=== PATIENT | male | born 1965 | race Caucasian/White ===

== ENCOUNTER 2017-04-27 09:01 | Inpatient (IN) ==
[2017-04-27] MEDS ORDERED: NITROGLYCERIN 2% OINT 1 INCH/GM PACK TOP STA (09:30)
[2017-04-27] MEDS ORDERED: METOPROLOL TARTRATE 25 MG TABLET PO STA (09:30)
[2017-04-27] MEDS ORDERED: ASPIRIN 325 MG TABLET PO STA (09:30)
[2017-04-27] MEDS ORDERED: MORPHINE 2 MG/1 ML SYRINGE IV STA (09:41)
[2017-04-27] MEDS ORDERED: ONDANSETRON 4 MG/2 ML VIAL IV STA (09:41)
[2017-04-27] MEDS ORDERED: ALUM/MAG/SIMETH/LIDO VISC 1:1 30 ML BOTTLE PO STA (09:41)
[2017-04-27 09:54] LABS: Basophils # 0.1 10*3/uL (0.0-0.2); Basophils % 0.6 % (0.0-0.8); Eosinophils # 0.1 10*3/uL (0.0-0.87); Eosinophils % 1.4 % (0.00-10.9); Hematocrit 46.9 VOL% (42.0-52.0); Hemoglobin 16.9 GM/DL (14.0-18.0); Immature Granulocytes % 0.3 %; Immature Granulocytes Absolute 0.03 #; Lymphocytes # 1.9 10*3/uL (1.4-4.0); Lymphocytes % 21.1 % (21.2-54.2); Mean Corpuscular Hemoglobin 29 PG (27-34); Monocytes # 0.6 10*3/uL (0.11-0.8); Monocytes % 6.8 % (1.7-12.7); Neutrophils # 6.2 10*3/uL (1.4-7.4); Neutrophils % 69.8 % (38.7-73.9); Platelet Count 264 T/CUMM (130-400); Red Blood Count 5.86 MC/CUMM (3.8-5.5); Red Cell Distribution Width 12.9 % (9.3-17.3); White Blood Count 8.9 T/CUMM (4-12)
--- NOTE | 2017-04-27 10:01 | XRay Report ---
XR chest 1V portable Indication: Chest pain Comparison: None Technique: Single frontal view of the chest. Findings: Heart size appears upper limits of normal. Mild left basilar atelectasis. Small left pleural fluid not excluded. Visualized osseous and surrounding soft tissue structures demonstrate no acute abnormality. IMPRESSION: As above. PROCEDURE INTERPRETED AT [facility] DEPARTMENT OF RADIOLOGY Final Report Signed by: Dr Josr Mcconnell
[2017-04-27] MEDS ORDERED: ONDANSETRON 4 MG/2 ML VIAL ONE (10:10)
[2017-04-27] MEDS ORDERED: METOPROLOL TARTRATE 25 MG TABLET ONE (10:10)
[2017-04-27] MEDS ORDERED: NITROGLYCERIN 2% OINT 1 INCH/GM PACK TOP ONE (10:10)
[2017-04-27] MEDS ORDERED: ASPIRIN 325 MG TABLET ONE (10:11)
[2017-04-27] MEDS ORDERED: ALUM/MAG/SIMETH/LIDO VISC 1:1 30 ML BOTTLE PO ONE (10:11)
[2017-04-27] MEDS ORDERED: MORPHINE 2 MG/1 ML SYRINGE ONE (10:11)
--- NOTE | 2017-04-27 10:11 | Emergency Department Note ---
Clara Leigh Gwan, am scribing for, and in the presence of, Niraj Snyder MD 10 :05. Lillian Leigh Charles R, MD, personally performed the services described in this documentation, ascribed by Adriana Elizabeth in my presence, and it is both accurate and complete . Arrival - Arrival Chief Complaint: Chest Pain Stated Complaint: cp ED Nursing Triage Note: pt reports that he had sudden onset of pain in center of chest this morning while getting dressed. reports got sob. no diaphoresis. took two ntg without any relief. pt holding his chest at present. had stents two months ago Mode of Arrival: Wheelchair Limitations: No Limitations Source: Patient, Old Records Reviewed, RN Notes Reviewed Time Seen by Provider: 04/27/17 09:30 - History of Present Illness HPI Narrative: Patient is a 51 y/o white male who presents to the ED with a c/o chest pain with an onset 1 hour REGULATOR TESTER. Pt has a PMHx of CAD, stents, HTN, IDDM and COPD. Patient stated that he has a sudden onset of chest pain while getting dressed. he continued to note that the pain was similar to the pain of his previous heart attack and that it radiated down his left arm. His associated sxs have been SOB and nausea and he stated that his pain worsens with movement. This prompted his visit to the ED for further evaluation. Patient confirmed that he took 2 NTG with little relief but he denies being diaphoretic. Patient is being followed by Dr. Fischer. No other problems/complaints reported in ED. Onset (ago): hour(s) Consistency: constant Severity: moderate Allergies/Adverse Reactions: Allergies Allergy/AdvReac Type Severity Reaction Status Date / Time No Known Allergies Allergy Verified 02/10/17 06:09 Home Medications: Home Medications Medication Instructions Recorded Confirmed Type Aspirin [Ecotrin] 81 mg PO DAILY 02/09/17 04/27/17 History Clopidogrel [Plavix] 75 mg PO DAILY 02/09/17 04/27/17 History Insulin Aspart [NovoLOG] See Protocol SUBCUT DAILY 02/09/17 04/27/17 History Insulin Detemir [Levemir] 38 units SUBCUT BEDTIME 02/09/17 04/27/17 History Lisinopril/Hydrochlorothiazide 1 each PO DAILY 02/09/17 04/27/17 History [Lisinopril-Hctz 20-12.5 mg Tab] Metformin HCl 1,000 mg PO BID 02/09/17 04/27/17 History Metoprolol Succinate 25 mg PO DAILY 02/09/17 04/27/17 History Nitroglycerin [Nitroglycerin SL 0.4 mg SL Q5M PRN 02/09/17 04/27/17 History Tab] Omeprazole 20 mg PO DAILY 02/09/17 04/27/17 History Albuterol Sulfate [Ventolin HFA] 2 puffs PO BID PRN 02/10/17 04/27/17 History Review of System - Review of System 12 point system: reviewed and no additional remarkable complaints except as stated - Review of System Constitutional: Absent: chills, fever Eyes: Absent: discharge Head/Ears/Nose/Throat: Absent: earache Respiratory: Present: as per HPI, other (shortness of breathe ). Absent: cough Cardiovascular: Present: as per HPI, chest pain Gastrointestinal: Present: as per HPI, nausea. Absent: abdominal pain, vomiting , diarrhea Genitourinary male: Absent: urgency, dysuria, frequency Musculoskeletal: Present: as per HPI, arm pain (chest pain radiates down left arm ). Absent: lower back pain, leg pain, neck pain Skin: Absent: rash, lesions Neurological: Absent: headache, weakness Psychiatric: Absent: anxiety Medical,Surgical,& Family Hx - Medical History Cardio: History of: CAD, Hypertension Neurology: No history of: Seizures Endocrine: History of: Diabetes Mellitus (IDDM) Musculoskeletal: History of: Back/Neck Problems - Surgical History Cardiac Surgeries: Sugical HX of: Cardiac Catheterization Thoracic Surgeries: Patient denies;: Lobectomy Neurologic Surgeries: Patient denies: Neurologic Surgery - Family History Family History: Reports;: Family Cancer, Family Diabetes, Family Heart Disease, Family Hypertension - Social History Smoking Status: Former smoker Exam Vital Signs: Vital Signs Temperature 98.2 F 04/27/17 09:07 Pulse Rate 86 04/27/17 09:35 Respiratory Rate 20 04/27/17 09:35 Blood Pressure 145/92 04/27/17 09:35 O2 Sat by Pulse Oximetry 97 04/27/17 09:35 - General General appearance: alert, in no apparent distress - Head Head exam: Present: atraumatic, normocephalic - Eye Eye exam: Present: normal appearance, PERRL, EOMI - ENT ENT exam: Present: normal oropharynx, mucous membranes moist, TM's normal bilaterally, normal external ear exam - Neck Neck exam: Present: full ROM, trachea midline. Absent: tenderness - Chest Chest inspection: Present: symmetric chest wall rise. Absent: tenderness - Respiratory Respiratory exam: Present: normal lung sounds bilaterally. Absent: respiratory distress - Cardiovascular Cardiovascular exam: Present: regular rate, normal rhythm, normal heart sounds. Absent: murmur - Abdominal Exam Abdominal exam: Present: soft, normal bowel sounds. Absent: distention, tenderness - Extremities Exam Extremities exam: Present: full ROM. Absent: tenderness - Back Exam Back exam: Present: full ROM. Absent: tenderness - Neurological Exam Neurological exam: Present: alert, oriented X3, CN II-XII intact. Absent: motor sensory deficit - Psychiatric Psychiatric exam: Present: normal affect, normal mood - Skin Skin exam: Present: warm, dry, intact, normal color - Other Other exam information: Patient is asymptomatic while in ED to include a NML EKG but, due to his hx and his sxs patient will undergo further evaluation. Course - Consultations Consultation #1: Dr. Burdick will admit patient Time: 10:53 Results - Labs CBC & BMP: 04/27/17 09:39 04/27/17 09:39 Lab Results: I have reviewed the patients labs Labs: Laboratory Tests 04/27/17 04/27/17 04/27/17 09:39 09:39 09:39 WBC 8.9 RBC 5.86 H Hgb 16.9 Hct 46.9 MCV 80.0 L Plt Count 264 Lymph % (Auto) 21.1 L Sodium 136 Potassium 3.5 Chloride 100 Carbon Dioxide 23 Anion Gap 16.5 H BUN 15 Creatinine 0.90 Glucose 302 H Troponin I < 0.015 Lipase 240.0 - Diagnostic Findings Procedure: Chest x-ray: report reviewed by me (Heart size appears upper limits of normal. Mild left basilar atelectasis. Small left pleural fluid not excluded. Visulaized osseous and surrounding soft tissue structures demonstrate no acute abnormality. ) Disposition Clinical Impression: Chest pain, CAD (coronary artery disease), Hypertension, Insulin dependent diabetes mellitus, s/p RCA stent 02/10/17 Case discussed with: patient Disposition: Still a Patient Condition: Stable Time of Disposition: 10:54
[2017-04-27 10:14] LABS: Bilirubin,Total 0.6 MG/DL (0.2-1.0); Calcium 9.2 MG/DL (8.5-10.1); Magnesium 1.8 MG/DL (1.8-2.4); Potassium 3.5 MMOL/L (3.5-5.1)
[2017-04-27] MEDS ORDERED: ENOXAPARIN 100 MG/ML SYRINGE SUBCUT STA (10:52)
[2017-04-27] MEDS ORDERED: ENOXAPARIN 120 MG/0.8 ML SYRINGE SUBCUT ONE (11:23)
[2017-04-27] MEDS ORDERED: MAGNESIUM SULF RIDER 2 GM in PREMIX 1 EACH IV PRN (11:53)
[2017-04-27] MEDS ORDERED: DEXTROSE 50% 25 GM/50 ML VIAL IV PRN (11:53)
[2017-04-27] MEDS ORDERED: MAGNESIUM SULF RIDER 4 GM in PREMIX 1 EACH IV PRN (11:53)
[2017-04-27] MEDS ORDERED: ALBUTEROL 2.5 MG/3 ML NEB RESP TX PRN (11:53)
[2017-04-27] MEDS ORDERED: NITROGLYCERIN SL 0.4 MG TABLET SL PRN (11:53)
[2017-04-27] MEDS ORDERED: GLUCAGON 1 MG VIAL IM PRN (11:53)
[2017-04-27 11:59] LABS: D-Dimer <= 0.5 MG/L FEU; PT Patient Result 10.5 SECS
[2017-04-27] MEDS: INSULIN LISPRO 100 UNIT/ML SUBCUT SCH ×3 (12:41→21:00)
[2017-04-27] MEDS: NITROGLYCERIN 2% OINT 1 INCH/GM PACK TOP SCH ×2 (12:42→17:05)
--- NOTE | 2017-04-27 13:01 | EKG Report ---
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
[2017-04-27] MEDS: SODIUM CHLORIDE 0.9% 1,000 ML IV SCH (14:50)
--- NOTE | 2017-04-27 14:59 | EKG Report ---
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
--- NOTE | 2017-04-27 15:02 | Ultrasound Report ---
History is right upper abdominal pain The liver is 17.6 cm in length. Echotexture is within normal limits There is a small amount of gallbladder sludge without shadowing stones No biliary ductal dilatation seen however the common bile duct was very poorly visualized. Echogenicity in the general region of the distal common duct on some images is uncertain whether this was adjacent to or within the common duct secondary to limited visualization. No right renal hydronephrosis seen There is prominent heterogeneity in the visualized pancreas. Portions of the head and tail are obscured Proximal visualized aorta and IVC are normal in size Impression: 1. Prominent heterogeneity of the pancreas raising question of pancreatitis 2. Poorly visualized distal common bile duct with echogenicity in the region of the distal duct which could be adjacent tissues or sludge within the duct. No shadowing stones seen. CT should be considered. PROCEDURE INTERPRETED AT [facility] DEPARTMENT OF RADIOLOGY Final Report Signed by: Dr. Adeline Mariscal
[2017-04-27] MEDS: MORPHINE 2 MG/1 ML SYRINGE IV PRN (15:03)
[2017-04-27] MEDS: POTASSIUM CHLORIDE 20 MEQ TABLET PO PRN ×2 (15:04→17:08)
[2017-04-27] MEDS: ONDANSETRON 4 MG/2 ML VIAL IV PRN (15:04)
--- NOTE | 2017-04-27 16:44 | Cardiology History & Physical ---
Assessment and Plan - Time spent with patient Time spent with patient: Greater than 30 minutes (1) Abdominal pain Status: Acute Assessment and plan: SEE PLAN OF CARE LISTED BELOW Current Visit: Yes (2) CAD (coronary artery disease) Status: Chronic Assessment and plan: SEE PLAN OF CARE LISTED BELOW Current Visit: Yes (3) Hypertension Status: Chronic Assessment and plan: SEE PLAN OF CARE LISTED BELOW Current Visit: Yes (4) Insulin dependent diabetes mellitus Status: Chronic Assessment and plan: SEE PLAN OF CARE LISTED BELOW Current Visit: Yes (5) Obesity Status: Chronic Assessment and plan: SEE PLAN OF CARE LISTED BELOW Current Visit: No (6) Tobacco abuse, in remission Status: Resolved Assessment and plan: SEE PLAN OF CARE LISTED BELOW Current Visit: No (7) Hypercholesterolemia Status: Chronic Assessment and plan: SEE PLAN OF CARE LISTED BELOW Current Visit: No (8) Obstructive sleep apnea Status: Chronic Assessment and plan: SEE PLAN OF CARE LISTED BELOW Current Visit: No (9) s/p RCA stent 02/10/17 Status: Chronic Assessment and plan: SEE PLAN OF CARE LISTED BELOW Current Visit: No (10) Family history of early CAD Status: Chronic Assessment and plan: SEE PLAN OF CARE LISTED BELOW Current Visit: No (11) Status post diagonal stent 02/24/17 Status: Chronic Assessment and plan: SEE PLAN OF CARE LISTED BELOW Current Visit: No (12) Chest pain Status: Acute Assessment and plan: SEE PLAN OF CARE LISTED BELOW Current Visit: Yes History of Present Illness Chief complaint: Chest pain History 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 (This is a late entry). Mr. Hooper, 51WM, routinely followed by Dr. Fischer. Last seen in cardiology clinic March 10, 2017. Risk factors include: Known coronary artery disease (S/ P diagonal stent February 24, 2017 and proximal RCA stent February 10, 2017), hypertension, dyslipidemia, diabetes, obesity, remote tobaccoism, family history of premature coronary artery disease. History of known obstructive sleep apnea, compliant with device. This morning, around 0830, patient got out of bed, began getting dressed when he experienced a sudden onset of chest pain located in the left chest area, radiating to left shoulder and between his shoulder blades. Patient describes as "sharp and stabbing." Taking a deep breath seemed to worsen the chest discomfort. He rates the discomfort as 7 on a scale of 1-10. He is currently chest pain free. This lasted approximately 30 minutes to 1 hour. He felt as if he may be having "heart problems" therefore warranting emergency department evaluation. When he received IV medication, chest discomfort was alleviated. He feels as if he has been doing well since his most recent stent in February 2017 , performing all of his activities without chest pain, heaviness or tightness. He reports compliance with aspirin and Plavix. Cardiac biomarkers are negative, EKG does not reveal an acute event. Denies swelling of his lower extremities or history of DVT or PE. D-dimer has been ordered. His chest discomfort is not reproducible with movement. In the right upper quadrant of the abdomen and mid epigastric area, he is exquisitely tender to touch. He has had no nausea or vomiting. He believes he may have had pancreatitis some years ago that he never sought medical advice. Lipase is within normal limits. Continue to cycle cardiac biomarkers at this time as well as close monitoring of his EKG. No need to repeat echocardiogram as we have a recent echo from prior hospitalization. Await results of d-dimer. If elevated, will perform CTA chest, PE protocol. Also, will treat for musculoskeletal pain and with PPI. Will discuss with Dr. Burdick and await additional recommendations. ASSESSMENT/PLAN: 1. CHEST PAIN - see plan of care listed above. 2. KNOWN CAD - S/P PCI Dx February 2017 and proximal RCA February 10, 2017. Continuing to monitor cardiac biomarkers, EKG 3. HYPERTENSION - adequately controlled on beta meir, SHANDA inhibitor 4. DYSLIPIDEMIA - I do not see a lipid lowering agent on patient's medication list. I will start Crestor 10 mg each evening. FLP in a.m. 5. DIABETES - suboptimally controlled blood glucose on arrival. Adjust medications accordingly during hospital stay. 6. PASHA - compliant with sleep device. Okay to use home device while hospitalized 7. OBESITY - dietary counseling prior to discharge 8. ABDOMINAL PAIN - gallbladder ultrasound (patient is n.p.o.), lipase and amylase. PPI. Home Medications Medication Instructions Recorded Confirmed Type Aspirin [Ecotrin] 81 mg PO DAILY 02/09/17 04/27/17 History Clopidogrel [Plavix] 75 mg PO DAILY 02/09/17 04/27/17 History Insulin Aspart [NovoLOG] See Protocol SUBCUT DAILY 02/09/17 04/27/17 History Insulin Detemir [Levemir] 38 units SUBCUT BEDTIME 02/09/17 04/27/17 History Lisinopril/Hydrochlorothiazide 1 each PO DAILY 02/09/17 04/27/17 History [Lisinopril-Hctz 20-12.5 mg Tab] Metformin HCl 1,000 mg PO BID 02/09/17 04/27/17 History Metoprolol Succinate 25 mg PO DAILY 02/09/17 04/27/17 History Nitroglycerin [Nitroglycerin SL 0.4 mg SL Q5M PRN 02/09/17 04/27/17 History Tab] Omeprazole 20 mg PO DAILY 02/09/17 04/27/17 History Albuterol Sulfate [Ventolin HFA] 2 puffs PO BID PRN 02/10/17 04/27/17 History Allergies Allergy/AdvReac Type Severity Reaction Status Date / Time No Known Allergies Allergy Verified 02/10/17 06:09 Review of systems: REVIEW OF SYSTEMS: See HPI - Constitutional Constitutional: Absent: syncope, anorexia, night sweats, fatigue - EENT Eyes: Absent: blurry vision, loss of vision, diplopia Ears: Absent: decreased hearing, ear pain, ear discharge - Cardiovascular Cardiovascular: Present: chest pain with movement and deep breath. Denies dyspnea on exertion, edema, palpitations. Absent: claudication, - Respiratory Respiratory: Denies ROBBINS, cough. Absent: wheezing, hemoptysis, change in phlegm color - Gastrointestinal Gastrointestinal: Denies constipation. Epigastric tenderness, exquisite to light palpation. Right upper quadrant abdominal pain reproducible to palpation though not the same as the chest discomfort he has been describing. Constipation. Absent: hematemesis, hematochezia, melena, change in bowel habits, nausea - Genitourinary Genitourinary: Absent: difficulty urinating, dysuria, urinary hesitancy, flank pain - Musculoskeletal Musculoskeletal: Present: back pain Absent: joint swelling, muscle cramps, muscle weakness - Neurological Neurological: Present: normal gait without frequent falls. Absent: dizziness, hemiparesis - Psychiatric Psychiatric: Absent: anxiety, depression, difficulty concentrating - Endocrine Endocrine: Denies fatigue. Absent: cold intolerance, heat intolerance, polyuria , polyphagia, polydipsia - Hematologic/Lymphatic Hematologic/Lymphatic: Present: easy bruising. Absent: easy bleedin -Integumentary Integumentary: Absent: lesions, rashes, skin breakdown Medical,Surgical,& Family Hx - Medical History Cardio: History of: CAD, Hypertension Neurology: No history of: Seizures Endocrine: History of: Diabetes Mellitus (IDDM) Musculoskeletal: History of: Back/Neck Problems - Surgical History Cardiac Surgeries: Sugical HX of: Cardiac Catheterization Thoracic Surgeries: Patient denies;: Lobectomy Neurologic Surgeries: Patient denies: Neurologic Surgery - Family History Family History: Reports;: Family Cancer, Family Diabetes, Family Heart Disease, Family Hypertension - Social History Smoking Status: Former smoker Frequency of Alcohol Use: None Type of Drug Use: None Cardiology Physical Exam - Constitutional Vitals: Vital Signs Temp Pulse Resp BP Pulse Ox 96.2 F L 73 20 137/79 96 04/27/17 12:23 04/27/17 12:23 04/27/17 12:23 04/27/17 12:23 04/27/17 12:23 Intake and Output 04/27/17 04/27/17 04/27/17 07:59 15:59 23:59 Other: Weight 101.406 kg Patient Weight 04/27/17 23:59 Weight 101.406 kg Exam: General: [Appears well with no apparent distress.] [Pleasant and cooperative. ] [Appears comfortable.] HEENT: [PERRL, normocephalic, atraumatic. Mucous membranes moist. No jaundice noted. Conjunctiva moist and clear, sclerae anicteric] Neck: No JVD/HJR, no thyromegaly or lymphadenopathy noted. No carotid bruit appreciated Cardiac: [Regular rate and rhythm.] [No murmur rub or gallop.] Lungs: [Clear to auscultation without accessory muscle use to assist the respiratory pattern.] Not requiring oxygen. Abdomen: Soft, bowel sounds normoactive. Epigastric tenderness to palpation, exquisite. Right upper quadrant abdominal discomfort to palpation. No abdominal bruit or thrill noted. No masses noted. Musculoskeletal: No fluid collection. Decreased range of motion is noted. Extremities: No clubbing, cyanosis noted. [ No edema noted.] Upper extremity pulses 2+. Lower extremity pulses 2+. Capillary refill less than 3 seconds. Skin: No unusual lesions or rashes. No skin breakdown appreciated. Neuro: Awake, alert and oriented 3. Moves all extremities well without hemiparesis or paralysis. No essential tremor is appreciated. Result/EKG - Labs CBC & BMP: 04/27/17 09:39 04/27/17 09:39 Lab Results: I have reviewed the past 24 hour labs Labs: Laboratory Results - last 24 hr 04/27/17 04/27/17 04/27/17 09:39 09:39 09:39 WBC RBC Hgb Hct MCV MCH MCHC RDW Plt Count MPV Neut % (Auto) Lymph % (Auto) Gila % (Auto) Eos % (Auto) Baso % (Auto) Neut # (Auto) Lymph # (Auto) Gila # (Auto) Eos # (Auto) Baso # (Auto) Immature Gran % Nucleated RBC % Immature Gran # Nucleated RBCs # INR 1.0 PT Patient/Control Mix 10.5 D-Dimer, Quantitative <= 0.5 Sodium 136 Potassium 3.5 Chloride 100 Carbon Dioxide 23 Anion Gap 16.5 H BUN 15 Creatinine 0.90 GFR Calculation 131 BUN/Creatinine Ratio 16.00 Glucose 302 H POC Glucose Calculated Osmolality 283.0 Calcium 9.2 Magnesium 1.8 Total Bilirubin 0.60 AST 21 ALT 50 Alkaline Phosphatase 70 Troponin I < 0.015 B-Natriuretic Peptide Total Protein 7.0 Albumin 4.0 Globulin 3.0 Albumin/Globulin Ratio 1.3 Lipase 240.0 04/27/17 04/27/17 04/27/17 09:39 09:39 12:15 WBC 8.9 RBC 5.86 H Hgb 16.9 Hct 46.9 MCV 80.0 L MCH 29 MCHC 36.0 RDW 12.9 Plt Count 264 MPV 10.0 Neut % (Auto) 69.8 Lymph % (Auto) 21.1 L Gila % (Auto) 6.8 Eos % (Auto) 1.4 Baso % (Auto) 0.6 Neut # (Auto) 6.2 Lymph # (Auto) 1.9 Gila # (Auto) 0.6 Eos # (Auto) 0.1 Baso # (Auto) 0.1 Immature Gran % 0.3 Nucleated RBC % 0.0 Immature Gran # 0.03 Nucleated RBCs # 0.00 INR PT Patient/Control Mix D-Dimer, Quantitative Sodium Potassium Chloride Carbon Dioxide Anion Gap BUN Creatinine GFR Calculation BUN/Creatinine Ratio Glucose POC Glucose 267 H Calculated Osmolality Calcium Magnesium Total Bilirubin AST ALT Alkaline Phosphatase Troponin I B-Natriuretic Peptide 9 Total Protein Albumin Globulin Albumin/Globulin Ratio Lipase 04/27/17 04/27/17 12:25 15:13 WBC RBC Hgb Hct MCV MCH MCHC RDW Plt Count MPV Neut % (Auto) Lymph % (Auto) Gila % (Auto) Eos % (Auto) Baso % (Auto) Neut # (Auto) Lymph # (Auto) Gila # (Auto) Eos # (Auto) Baso # (Auto) Immature Gran % Nucleated RBC % Immature Gran # Nucleated RBCs # INR PT Patient/Control Mix D-Dimer, Quantitative Sodium Potassium Chloride Carbon Dioxide Anion Gap BUN Creatinine GFR Calculation BUN/Creatinine Ratio Glucose POC Glucose Calculated Osmolality Calcium Magnesium Total Bilirubin AST ALT Alkaline Phosphatase Troponin I < 0.015 0.022 B-Natriuretic Peptide Total Protein Albumin Globulin Albumin/Globulin Ratio Lipase - Diagnostic Findings Procedure: Chest x-ray: report reviewed by me - EKG EKG results: interpreted by me EKG shows: sinus rhythm
[2017-04-27] MEDS: GABAPENTIN 100 MG CAPSULE PO SCH ×2 (17:03→20:59)
[2017-04-27] MEDS: traMADol 50 MG TABLET PO SCH ×2 (17:03→20:58)
[2017-04-27] MEDS: ACETAMINOPHEN 325 MG TABLET PO SCH ×2 (17:03→20:59)
[2017-04-27] MEDS: ROSUVASTATIN 20 MG TABLET PO SCH (20:59)
[2017-04-27] MEDS: metFORMIN 500 MG TABLET PO SCH (20:59)
[2017-04-27] MEDS: INSULIN GLARGINE 100 UNIT/ML SUBCUT SCH (21:00)
[2017-04-28] MEDS: NITROGLYCERIN 2% OINT 1 INCH/GM PACK TOP SCH ×4 (00:17→17:50)
[2017-04-28] MEDS: SODIUM CHLORIDE 0.9% 1,000 ML IV SCH ×4 (04:41→20:27)
[2017-04-28 05:24] LABS: Basophils % 0.6 % (0.0-0.8); Eosinophils # 0.3 10*3/uL (0.0-0.87); Hematocrit 46.5 VOL% (42.0-52.0); Hemoglobin 16.1 GM/DL (14.0-18.0); Immature Granulocytes % 0.4 %; Immature Granulocytes Absolute 0.03 #; Lymphocytes % 30.4 % (21.2-54.2); Mean Corpuscular HGB Conc 34.6 GM/DL (32-36); Mean Corpuscular Hemoglobin 28 PG (27-34); Monocytes # 0.5 10*3/uL (0.11-0.8); Monocytes % 7.3 % (1.7-12.7); Neutrophils # 3.9 10*3/uL (1.4-7.4); Neutrophils % 57.3 % (38.7-73.9); Platelet Count 261 T/CUMM (130-400); Red Blood Count 5.67 MC/CUMM (3.8-5.5); Red Cell Distribution Width 13.3 % (9.3-17.3); White Blood Count 6.7 T/CUMM (4-12)
[2017-04-28 05:58] LABS: Calcium 9.2 MG/DL (8.5-10.1); Magnesium 2.2 MG/DL (1.8-2.4); Osmolality,Calculated 285.4 MOS/KG (273-304); Potassium 4.6 MMOL/L (3.5-5.1)
[2017-04-28 06:02] LABS: Troponin I Only 0.256 NG/ML (0.00-0.045)
[2017-04-28 06:04] LABS: Albumin 3.7 G/DL (3.4-5.0); Bilirubin,Total 0.6 MG/DL (0.2-1.0); Calcium 9.3 MG/DL (8.5-10.1); Magnesium 2.2 MG/DL (1.8-2.4); Osmolality,Calculated 285.4 MOS/KG (273-304); Potassium 4.4 MMOL/L (3.5-5.1); Risk Ratio 5.33; Total Protein 6.4 G/DL (6.4-8.3)
--- NOTE | 2017-04-28 07:34 | EKG Report ---
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
--- NOTE | 2017-04-28 07:40 | XRay Report ---
Referring Physician: Niraj Snyder Exam: XR chest 1V portable Date: April 28, 2017 at 6:22 AM Reason: Shortness of breath Comparison: Chest one view portable April 27, 2017 Findings: The cardiac silhouette is upper normal in size. No focal consolidation, pneumothorax or pleural effusion is identified. No acute osseous process is seen. Impression: No acute cardiopulmonary process is identified. PROCEDURE INTERPRETED AT [facility] DEPARTMENT OF RADIOLOGY Final Report Signed by: Dr. Marixa Rome
[2017-04-28] MEDS: INSULIN LISPRO 100 UNIT/ML SUBCUT SCH ×4 (08:08→20:36)
[2017-04-28] MEDS ORDERED: LISINOPRIL/HCTZ 20-12.5 MG TABLET PO SCH (09:00)
[2017-04-28] MEDS ORDERED: ASPIRIN EC 81 MG TABLET PO SCH (09:00)
[2017-04-28] MEDS ORDERED: ASPIRIN EC 325 MG TABLET PO SCH (09:00)
[2017-04-28] MEDS ORDERED: PANTOPRAZOLE 40 MG TABLET PO SCH (09:00)
[2017-04-28] MEDS: METOPROLOL SUCCINATE XL 25 MG TABLET PO SCH (09:04)
[2017-04-28] MEDS: CLOPIDOGREL 75 MG TABLET PO SCH (09:04)
[2017-04-28] MEDS: GABAPENTIN 100 MG CAPSULE PO SCH ×3 (09:04→20:38)
[2017-04-28] MEDS: metFORMIN 500 MG TABLET PO SCH ×2 (09:04→20:37)
[2017-04-28] MEDS: PANTOPRAZOLE 40 MG TABLET PO SCH (09:04)
[2017-04-28] MEDS: ACETAMINOPHEN 325 MG TABLET PO SCH ×2 (09:04→20:38)
[2017-04-28] MEDS: traMADol 50 MG TABLET PO SCH ×2 (09:05→20:37)
--- NOTE | 2017-04-28 09:45 | Cardiology Progress Note ---
Assessment and Plan - Time spent with patient Time spent with patient: Greater than 30 minutes (1) Abdominal pain Status: Acute Assessment and plan: SEE PLAN OF CARE LISTED BELOW Current Visit: Yes (2) CAD (coronary artery disease) Status: Chronic Assessment and plan: SEE PLAN OF CARE LISTED BELOW Current Visit: Yes (3) Hypertension Status: Chronic Assessment and plan: SEE PLAN OF CARE LISTED BELOW Current Visit: Yes (4) Insulin dependent diabetes mellitus Status: Chronic Assessment and plan: SEE PLAN OF CARE LISTED BELOW Current Visit: Yes (5) Obesity Status: Chronic Assessment and plan: SEE PLAN OF CARE LISTED BELOW Current Visit: No (6) Tobacco abuse, in remission Status: Resolved Assessment and plan: SEE PLAN OF CARE LISTED BELOW Current Visit: No (7) Hypercholesterolemia Status: Chronic Assessment and plan: SEE PLAN OF CARE LISTED BELOW Current Visit: No (8) Obstructive sleep apnea Status: Chronic Assessment and plan: SEE PLAN OF CARE LISTED BELOW Current Visit: No (9) s/p RCA stent 02/10/17 Status: Chronic Assessment and plan: SEE PLAN OF CARE LISTED BELOW Current Visit: No (10) Family history of early CAD Status: Chronic Assessment and plan: SEE PLAN OF CARE LISTED BELOW Current Visit: No (11) Status post diagonal stent 02/24/17 Status: Chronic Assessment and plan: SEE PLAN OF CARE LISTED BELOW Current Visit: No (12) Chest pain Status: Acute Assessment and plan: SEE PLAN OF CARE LISTED BELOW Current Visit: Yes Cardiology - PN: Subj Interval history: Gela to complete Gallbladder ultrasound abnormal. Discussed with Dr. Burdick. Will order CT abdomen with IV contrast not oral contrast. Also, patient continues to have back pain between his shoulder blades. We will see if we can do CT chest with contrast at this time, the abdominal CT. He is n.p.o. 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 Hooper, 51WM, routinely followed by Dr. Fischer. Last seen in cardiology clinic March 10, 2017. Risk factors include: Known coronary artery disease (S/P diagonal stent February 24, 2017 and proximal RCA stent February 10, 2017) , hypertension, dyslipidemia, diabetes, obesity, remote tobaccoism, family history of premature coronary artery disease. History of known obstructive sleep apnea, compliant with device. Presented to the emergency department April 27, 2016 with sudden onset left-sided chest pain, left shoulder pain and pain between his scapula. He has been housed on our telemetry unit overnight. Troponin noted to be 0.256 with normal CPK and MB. EKG stable. This morning, left-sided chest pain and shoulder pain has resolved however he continues to have pain between his scapula at various times. Gallbladder ultrasound revealed possible pancreatitis. Lipase and amylase are within normal limits however. D-dimer normal. He is NPO for abdominal CT with IV contrast and CT chest this morning. I have discussed with Dr. Burdick and he has recommended GI consultation. Hima elevated at 300, LDL 99. ASSESSMENT/PLAN: 1. CHEST PAIN - see plan of care listed above. 2. KNOWN CAD - S/P PCI Dx February 2017 and proximal RCA February 10, 2017. Continuing to monitor cardiac biomarkers, EKG 3. HYPERTENSION -increasing SHANDA inhibitor or for better blood pressure control. Continue beta blockade. 4. DYSLIPIDEMIA - suboptimally controlled. Will add [place]-3 to treat triglycerides. Crestor was initiated yesterday. 5. DIABETES - suboptimally controlled blood glucose on arrival. Better controlled this morning. 6. PASHA - compliant with sleep device. Okay to use home device while hospitalized 7. OBESITY - dietary counseling prior to discharge 8. ABDOMINAL PAIN -awaiting CT abdomen, GI consultation. Continue PPI. Exam (Progress Note) - Constitutional Vitals: Period Temp Pulse Resp BP Sys/Smith Pulse Ox Last 24 Hr 96.2 F-97.5 F 55-85 16-20 122-167/64-91 92-98 Exam: General: [Appears well with no apparent distress.] [Pleasant and cooperative. ] [Appears comfortable.] HEENT: [PERRL, normocephalic, atraumatic. Mucous membranes moist. No jaundice noted. Conjunctiva moist and clear, sclerae anicteric] Neck: Unable to assess for JVD due to habitus. No thyromegaly or lymphadenopathy noted. Cardiac: [Regular rate and rhythm.] [No murmur rub or gallop.] Lungs: [Clear to auscultation without accessory muscle use to assist the respiratory pattern.] Not requiring oxygen Abdomen: Soft, bowel sounds normoactive. Nondistended. No abdominal bruit or thrill noted. No masses noted. Musculoskeletal: No fluid collection. Decreased range of motion is noted. Extremities: No clubbing, cyanosis noted. [ No edema noted.] Upper extremity pulses 2+. Lower extremity pulses 2+. Capillary refill less than 3 seconds. Skin: No unusual lesions or rashes. No skin breakdown appreciated. Neuro: Awake, alert and oriented 3. Moves all extremities well without hemiparesis or paralysis. No essential tremor is appreciated. Result/EKG - Labs CBC & BMP: 04/28/17 04:45 04/28/17 04:45 Lab Results: I have reviewed the past 24 hour labs Labs: Laboratory Results - last 24 hr 04/27/17 04/27/17 04/27/17 09:39 09:39 09:39 WBC RBC Hgb Hct MCV MCH MCHC RDW Plt Count MPV Neut % (Auto) Lymph % (Auto) [place] % (Auto) Eos % (Auto) Baso % (Auto) Neut # (Auto) Lymph # (Auto) [place] # (Auto) Eos # (Auto) Baso # (Auto) Immature Gran % Nucleated RBC % Immature Gran # Nucleated RBCs # INR 1.0 PT Patient/Control Mix 10.5 D-Dimer, Quantitative <= 0.5 Sodium 136 Potassium 3.5 Chloride 100 Carbon Dioxide 23 Anion Gap 16.5 H BUN 15 Creatinine 0.90 GFR Calculation 131 BUN/Creatinine Ratio 16.00 Glucose 302 H POC Glucose Calculated Osmolality 283.0 Calcium 9.2 Magnesium 1.8 Total Bilirubin 0.60 AST 21 ALT 50 Alkaline Phosphatase 70 Total Creatine Kinase CK-MB (CK-2) Troponin I < 0.015 B-Natriuretic Peptide Total Protein 7.0 Albumin 4.0 Globulin 3.0 Albumin/Globulin Ratio 1.3 Triglycerides Cholesterol LDL Cholesterol VLDL Cholesterol HDL Cholesterol Heart Disease Risk Ratio Amylase Lipase 240.0 04/27/17 04/27/17 04/27/17 09:39 09:39 12:15 WBC 8.9 RBC 5.86 H Hgb 16.9 Hct 46.9 MCV 80.0 L MCH 29 MCHC 36.0 RDW 12.9 Plt Count 264 MPV 10.0 Neut % (Auto) 69.8 Lymph % (Auto) 21.1 L [place] % (Auto) 6.8 Eos % (Auto) 1.4 Baso % (Auto) 0.6 Neut # (Auto) 6.2 Lymph # (Auto) 1.9 [place] # (Auto) 0.6 Eos # (Auto) 0.1 Baso # (Auto) 0.1 Immature Gran % 0.3 Nucleated RBC % 0.0 Immature Gran # 0.03 Nucleated RBCs # 0.00 INR PT Patient/Control Mix D-Dimer, Quantitative Sodium Potassium Chloride Carbon Dioxide Anion Gap BUN Creatinine GFR Calculation BUN/Creatinine Ratio Glucose POC Glucose 267 H Calculated Osmolality Calcium Magnesium Total Bilirubin AST ALT Alkaline Phosphatase Total Creatine Kinase CK-MB (CK-2) Troponin I B-Natriuretic Peptide 9 Total Protein Albumin Globulin Albumin/Globulin Ratio Triglycerides Cholesterol LDL Cholesterol VLDL Cholesterol HDL Cholesterol Heart Disease Risk Ratio Amylase Lipase 04/27/17 04/27/17 04/27/17 12:25 15:13 15:46 WBC RBC Hgb Hct MCV MCH MCHC RDW Plt Count MPV Neut % (Auto) Lymph % (Auto) [place] % (Auto) Eos % (Auto) Baso % (Auto) Neut # (Auto) Lymph # (Auto) [place] # (Auto) Eos # (Auto) Baso # (Auto) Immature Gran % Nucleated RBC % Immature Gran # Nucleated RBCs # INR PT Patient/Control Mix D-Dimer, Quantitative Sodium Potassium Chloride Carbon Dioxide Anion Gap BUN Creatinine GFR Calculation BUN/Creatinine Ratio Glucose POC Glucose 253 H Calculated Osmolality Calcium Magnesium Total Bilirubin AST ALT Alkaline Phosphatase Total Creatine Kinase CK-MB (CK-2) Troponin I < 0.015 0.022 B-Natriuretic Peptide Total Protein Albumin Globulin Albumin/Globulin Ratio Triglycerides Cholesterol LDL Cholesterol VLDL Cholesterol HDL Cholesterol Heart Disease Risk Ratio Amylase Lipase 04/27/17 04/28/17 04/28/17 19:29 00:15 04:45 WBC 6.7 RBC 5.67 H Hgb 16.1 Hct 46.5 MCV 82.0 L MCH 28 MCHC 34.6 RDW 13.3 Plt Count 261 MPV 10.0 Neut % (Auto) 57.3 Lymph % (Auto) 30.4 [place] % (Auto) 7.3 Eos % (Auto) 4.0 Baso % (Auto) 0.6 Neut # (Auto) 3.9 Lymph # (Auto) 2.0 [place] # (Auto) 0.5 Eos # (Auto) 0.3 Baso # (Auto) 0.0 Immature Gran % 0.4 Nucleated RBC % 0.0 Immature Gran # 0.03 Nucleated RBCs # 0.00 INR PT Patient/Control Mix D-Dimer, Quantitative Sodium Potassium Chloride Carbon Dioxide Anion Gap BUN Creatinine GFR Calculation BUN/Creatinine Ratio Glucose POC Glucose 304 H 175 H Calculated Osmolality Calcium Magnesium Total Bilirubin AST ALT Alkaline Phosphatase Total Creatine Kinase CK-MB (CK-2) Troponin I B-Natriuretic Peptide Total Protein Albumin Globulin Albumin/Globulin Ratio Triglycerides Cholesterol LDL Cholesterol VLDL Cholesterol HDL Cholesterol Heart Disease Risk Ratio Amylase Lipase 04/28/17 04/28/17 04/28/17 04:45 04:45 04:45 WBC RBC Hgb Hct MCV MCH MCHC RDW Plt Count MPV Neut % (Auto) Lymph % (Auto) [place] % (Auto) Eos % (Auto) Baso % (Auto) Neut # (Auto) Lymph # (Auto) [place] # (Auto) Eos # (Auto) Baso # (Auto) Immature Gran % Nucleated RBC % Immature Gran # Nucleated RBCs # INR PT Patient/Control Mix D-Dimer, Quantitative Sodium 140 Potassium 4.4 Chloride 102 Carbon Dioxide 29 Anion Gap 13.4 BUN 18 Creatinine 0.90 GFR Calculation 126 BUN/Creatinine Ratio 20.00 Glucose 180 H POC Glucose Calculated Osmolality 285.4 Calcium 9.3 Magnesium 2.2 Total Bilirubin 0.60 AST 20 ALT 50 Alkaline Phosphatase 65 Total Creatine Kinase 65 CK-MB (CK-2) 2.0 Troponin I 0.256 H D B-Natriuretic Peptide 8 Total Protein 6.4 Albumin 3.7 Globulin 2.7 Albumin/Globulin Ratio 1.3 Triglycerides 300 H Cholesterol 160 LDL Cholesterol 99.0 VLDL Cholesterol 60.0 HDL Cholesterol 30 L Heart Disease Risk Ratio 5.33 Amylase Lipase 04/28/17 04/28/17 04/28/17 04:45 04:45 07:54 WBC RBC Hgb Hct MCV MCH MCHC RDW Plt Count MPV Neut % (Auto) Lymph % (Auto) [place] % (Auto) Eos % (Auto) Baso % (Auto) Neut # (Auto) Lymph # (Auto) [place] # (Auto) Eos # (Auto) Baso # (Auto) Immature Gran % Nucleated RBC % Immature Gran # Nucleated RBCs # INR PT Patient/Control Mix D-Dimer, Quantitative Sodium 140 Potassium 4.6 Chloride 102 Carbon Dioxide 29 Anion Gap 13.6 BUN 17 Creatinine 0.90 GFR Calculation 126 BUN/Creatinine Ratio 18.00 Glucose 180 H POC Glucose 149 H Calculated Osmolality 285.4 Calcium 9.2 Magnesium 2.2 Total Bilirubin AST ALT Alkaline Phosphatase Total Creatine Kinase CK-MB (CK-2) Troponin I B-Natriuretic Peptide Total Protein Albumin Globulin Albumin/Globulin Ratio Triglycerides Cholesterol LDL Cholesterol VLDL Cholesterol HDL Cholesterol Heart Disease Risk Ratio Amylase 85 Lipase - Diagnostic Findings Procedure: Chest x-ray: report reviewed by me, Ultrasound: report reviewed by me - EKG EKG results: interpreted by me EKG shows: sinus rhythm
--- NOTE | 2017-04-28 09:59 | Gastrointestinal Consult Note ---
Assessment and Plan (1) Abdominal pain Status: Acute Assessment and plan: 04/28-sudden onset epigastric pain radiating up into chest down arm into the back , associated with nausea. Cardiac history with recent stent placement. Gallbladder ultrasound showing prominent heterogeneity of pancreas, poorly visualized common bile duct and distal duct region with questionable sludge/ adjacent tissue. CT of abdomen pending. Lipase 240. LFTs unremarkable. Cardiac workup is ongoing. Plan an addendum to follow Dr. Colleen gregory Current Visit: Yes History of Present Illness Chief complaint: Abdominal pain History of present illness: Mr. Hooper is a 51 year old male who was admitted to the hospital with sudden onset of chest pain and abdominal pain. Pt states that yesterday morning he was up doing chores around his home and sat down to put on his shoes when he had a sudden onset of sharp stabbing chest pain that radiated up into his chest and down his left arm as well as into his back. He also had onset of nausea associated with this. He states that he at that time decided to come to the ER due to history of ND in the past. Pt states this felt similar to his chest pain he had at that time. He has a history of ND and stent placement in 2014 and then again in January and February of this yaer. He has been on Plavix since 2013. He states that he has no prior GI history in the past. He has never had endoscopy in the past as well. He has history of GERD and takes OTC Prilosec for this. Denies any other GI symptoms including dysphagia, dyspepsia, melena or hematochezia. He denies any NSAID use. Denies any recent weight loss. He states he has a strong family history for gallbladder disease in his mother and two sisters. He denies alcohol use and has a history of tobacco use however he has been quit for years. He recalls a vague history of pancreatitis in the past but cannot recall details of this. He is tenderness to epigastric region with light palpation. Gallbladder ultrasound noted to show prominent heterogenity of the pancreas, poorly visualized distal CBD in region of distal duct with possible sludge. CT of abdomen and chest are pending this morning. LFTs are unremarkable. Lipase is 240. Home Medications Medication Instructions Recorded Confirmed Type Aspirin [Ecotrin] 81 mg PO DAILY 02/09/17 04/27/17 History Clopidogrel [Plavix] 75 mg PO DAILY 02/09/17 04/27/17 History Insulin Aspart [NovoLOG] See Protocol SUBCUT DAILY 02/09/17 04/27/17 History Insulin Detemir [Levemir] 38 units SUBCUT BEDTIME 02/09/17 04/27/17 History Lisinopril/Hydrochlorothiazide 1 each PO DAILY 02/09/17 04/27/17 History [Lisinopril-Hctz 20-12.5 mg Tab] Metformin HCl 1,000 mg PO BID 02/09/17 04/27/17 History Metoprolol Succinate 25 mg PO DAILY 02/09/17 04/27/17 History Nitroglycerin [Nitroglycerin SL 0.4 mg SL Q5M PRN 02/09/17 04/27/17 History Tab] Omeprazole 20 mg PO DAILY 02/09/17 04/27/17 History Albuterol Sulfate [Ventolin HFA] 2 puffs PO BID PRN 02/10/17 04/27/17 History Allergies Allergy/AdvReac Type Severity Reaction Status Date / Time No Known Allergies Allergy Verified 02/10/17 06:09 Medical,Surgical,& Family Hx - Medical History Cardio: History of: CAD, Hypertension Neurology: No history of: Seizures Endocrine: History of: Diabetes Mellitus (IDDM) Musculoskeletal: History of: Back/Neck Problems - Surgical History Cardiac Surgeries: Sugical HX of: Cardiac Catheterization Thoracic Surgeries: Patient denies;: Lobectomy Neurologic Surgeries: Patient denies: Neurologic Surgery - Family History Family History: Reports;: Family Cancer, Family Diabetes, Family Heart Disease, Family Hypertension - Social History Smoking Status: Former smoker Frequency of Alcohol Use: None Type of Drug Use: None 12 point system: reviewed and no additional remarkable complaints except as stated - Constitutional Constitutional: Present: as per HPI - EENT Eyes: Present: as per HPI Ears: Present: as per HPI Nose, mouth and throat: Present: as per HPI - Cardiovascular Cardiovascular: Present: as per HPI, chest pain at rest, radiating jaw, neck or arm pain - Respiratory Respiratory: Present: as per HPI - Gastrointestinal Gastrointestinal: Present: as per HPI, abdominal pain, heartburn, nausea - Genitourinary Genitourinary: Present: as per HPI - Musculoskeletal Musculoskeletal: Present: as per HPI - Neurological Neurological: Present: as per HPI - Psychiatric Psychiatric: Present: as per HPI - Endocrine Endocrine: Present: as per HPI - Hematologic/Lymphatic Hematologic/Lymphatic: Present: as per HPI Exam - Constitutional Vitals: Period Temp Pulse Resp BP Sys/Smith Pulse Ox Last 24 Hr 96.2 F-97.5 F 55-85 16-20 122-167/64-91 92-98 General appearance: no acute distress, over weight - Head Head exam: Present: normal inspection, normocephalic - Eye Eye exam: Present: other (lids and conjunctiva unremarakble). Absent: scleral icterus - ENT ENT exam: Present: normal exam, normal oropharynx - Neck Neck exam: Present: normal inspection - Respiratory Respiratory exam: Present: clear to auscultation bilaterally. Absent: rales, rhonchi, wheezes - Cardiovascular Cardiovascular exam: Present: regular rate and rhythm. Absent: diastolic murmur , JVD, systolic murmur - GI/Abdominal GI/Abdominal exam: Present: normal bowel sounds, soft. Absent: ascites, distended, mass, organomegaly, tenderness - Extremities Exam Extremities exam: Present: normal inspection, full ROM - Back Exam Back exam: Present: normal inspection - Neurological Exam Neurological exam: Present: alert, oriented X3 - Psychiatric Psychiatric exam: Present: normal affect, normal mood - Skin Skin exam: Present: normal color, warm, dry Results - Labs CBC & BMP: 04/28/17 04:45 04/28/17 04:45 Lab Results: I have reviewed the past 24 hour labs - Diagnostic Findings Procedure: Ultrasound: report reviewed by me
--- NOTE | 2017-04-28 11:15 | CT Report ---
CT chest abdomen wo/w con Indication: Noncardiac chest/abdominal pain/abnormal ultrasound Comparison: Gallbladder ultrasound April 27, 2017 Technique: Multiple axial tomographic images of the chest and abdomen were obtained before and after the administration of 100 cc Omnipaque 350 intravenous contrast. Findings: Aberrant right subclavian artery courses behind the esophagus. Heart size appears within normal limits. Coronary artery calcification noted. No significantly enlarged intrathoracic lymph node by CT size criteria. Occasional noncalcified bilateral noncalcified pulmonary nodules noted measuring 4 mm or less. Granulomatous calcification noted within the left lung apex. Mild groundglass attenuation demonstrated within the anteroinferior left lower lobe. Mild dependent change of the lungs present. No worrisome focal hepatic abnormality. The gallbladder is grossly unremarkable. The pancreas is grossly unremarkable. The spleen is grossly unremarkable. The bilateral adrenal glands are grossly unremarkable. The bilateral kidneys are grossly unremarkable. No evidence of gastrointestinal obstruction. Abdominal vasculature grossly unremarkable. Visualized osseous and surrounding soft tissue structures demonstrate no acute abnormality. Anterior screws demonstrated within L4 and L5. Disc spacers noted at L4-5 and L5-S1. Orthopedic screw demonstrated vertically within S1, partially visualized. Bilateral pedicle screws and posterior rods noted at the S1-2 level. Laminectomy change noted from L4 through S1. IMPRESSION: Aberrant right subclavian artery. Occasional noncalcified bilateral noncalcified pulmonary nodules noted measuring 4 mm or less. Consider follow-up chest CT in 6 months to document stability. Mild groundglass attenuation demonstrated within the anteroinferior left lower lobe. This may reflect partial atelectasis or infectious/inflammatory process. No evidence of acute intra-abdominal abnormality. Post surgical change of the lumbosacral spine and other detailed findings as above. The CT exam was performed using one or more of the following dose reduction techniques: Automated exposure control, adjustment of the mA and/or kV according to patient size, or use of iterative reconstruction technique. PROCEDURE INTERPRETED AT [facility] DEPARTMENT OF RADIOLOGY Final Report Signed by: Dr Josr Mcconnell
[2017-04-28] MEDS: ENOXAPARIN 120 MG/0.8 ML SYRINGE SUBCUT SCH ×2 (12:18→20:35)
--- NOTE | 2017-04-28 13:01 | EKG Report ---
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
[2017-04-28] MEDS: OMEGA 3 ACID ETHYL ESTERS 1 GM CAPSULE PO SCH ×2 (15:37→20:37)
[2017-04-28] MEDS: MORPHINE 2 MG/1 ML SYRINGE IV PRN (15:38)
[2017-04-28] MEDS: INSULIN GLARGINE 100 UNIT/ML SUBCUT SCH (20:35)
[2017-04-28] MEDS: ROSUVASTATIN 20 MG TABLET PO SCH (20:37)
[2017-04-29] MEDS: NITROGLYCERIN 2% OINT 1 INCH/GM PACK TOP SCH ×4 (01:03→17:11)
[2017-04-29 05:38] LABS: Basophils % 0.5 % (0.0-0.8); Eosinophils # 0.3 10*3/uL (0.0-0.87); Eosinophils % 3.9 % (0.00-10.9); Hematocrit 47.6 VOL% (42.0-52.0); Hemoglobin 16.4 GM/DL (14.0-18.0); Immature Granulocytes % 0.4 %; Immature Granulocytes Absolute 0.03 #; Lymphocytes # 2.3 10*3/uL (1.4-4.0); Lymphocytes % 30.5 % (21.2-54.2); Mean Corpuscular HGB Conc 34.5 GM/DL (32-36); Mean Corpuscular Hemoglobin 29 PG (27-34); Mean Corpuscular Volume 83.5 FL (87-102); Mean Platelet Volume 10.1 FL (9.6-12.0); Monocytes # 0.6 10*3/uL (0.11-0.8); Neutrophils # 4.4 10*3/uL (1.4-7.4); Neutrophils % 56.7 % (38.7-73.9); Platelet Count 240 T/CUMM (130-400); Red Cell Distribution Width 13.1 % (9.3-17.3); White Blood Count 7.7 T/CUMM (4-12)
[2017-04-29 06:08] LABS: Calcium 8.7 MG/DL (8.5-10.1); Potassium 4.4 MMOL/L (3.5-5.1)
[2017-04-29] MEDS: INSULIN LISPRO 100 UNIT/ML SUBCUT SCH ×4 (08:06→20:49)
--- NOTE | 2017-04-29 09:36 | Nuclear Medicine Report ---
NM hepatobiliary Indication: Upper abdominal/biliary type pain Comparison: None Radiopharmaceutical: 5 mCi technetium 99m Choletec IV. Technique: Anterior dynamic images were acquired over the upper abdomen for a period of 1 hour following intravenous administration of the radiopharmaceutical. Subsequently, 8 ounces Ensure was administered orally with additional images of the upper abdomen acquired for 30 minutes. Gallbladder ejection fraction was calculated. Findings: Review of the images demonstrate prompt clearance of the radiopharmaceutical from the blood pool into the liver parenchyma. There is prompt progression of the isotope from the liver into the intrahepatic biliary ducts, common bile duct, and the gallbladder. Radiotracer is noted in the small bowel at the end of 60 minutes.Following administration of Ensure , calculated gallbladder ejection fraction was 49 % (normal > 35%). There was further radiotracer accumulation in the small bowel. IMPRESSION: Unremarkable nuclear medicine hepatobiliary imaging study. PROCEDURE INTERPRETED AT [facility] DEPARTMENT OF RADIOLOGY Final Report Signed by: Dr Josr Mcconnell
[2017-04-29] MEDS: traMADol 50 MG TABLET PO SCH ×2 (09:40→20:28)
[2017-04-29] MEDS: ENOXAPARIN 120 MG/0.8 ML SYRINGE SUBCUT SCH ×2 (09:40→20:26)
[2017-04-29] MEDS: metFORMIN 500 MG TABLET PO SCH ×2 (09:40→20:27)
[2017-04-29] MEDS: OMEGA 3 ACID ETHYL ESTERS 1 GM CAPSULE PO SCH ×2 (09:40→21:45)
[2017-04-29] MEDS: GABAPENTIN 100 MG CAPSULE PO SCH ×3 (09:40→20:28)
[2017-04-29] MEDS: METOPROLOL SUCCINATE XL 25 MG TABLET PO SCH (09:40)
[2017-04-29] MEDS: hydroCHLOROthiazide 12.5 MG CAPSULE PO SCH (09:41)
[2017-04-29] MEDS: LISINOPRIL 20 MG TABLET PO SCH (09:41)
[2017-04-29] MEDS: CLOPIDOGREL 75 MG TABLET PO SCH (09:41)
[2017-04-29] MEDS: ACETAMINOPHEN 325 MG TABLET PO SCH ×2 (09:41→20:28)
[2017-04-29] MEDS: ASPIRIN EC 81 MG TABLET PO SCH (09:41)
[2017-04-29] MEDS: PANTOPRAZOLE 40 MG TABLET PO SCH (09:41)
[2017-04-29] MEDS: SODIUM CHLORIDE 0.9% 1,000 ML IV SCH (09:42)
[2017-04-29] MEDS: ONDANSETRON 4 MG/2 ML VIAL IV PRN (09:50)
--- NOTE | 2017-04-29 09:52 | EKG Report ---
Stationary ECG Study 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
[2017-04-29] MEDS: MORPHINE 2 MG/1 ML SYRINGE IV PRN ×2 (09:53→20:25)
--- NOTE | 2017-04-29 10:45 | Gastrointestinal Progress Note ---
Assessment and Plan (1) Abdominal pain Status: Acute Assessment and plan: 04/29-HIDA scan results noted to be normal. Episode of epigastric/chest pain this morning. [place] to be noncardiac origin. Plan an addendum to followed by Dr. Macias. 04/28-sudden onset epigastric pain radiating up into chest down arm into the back , associated with nausea. Cardiac history with recent stent placement. Gallbladder ultrasound showing prominent heterogeneity of pancreas, poorly visualized common bile duct and distal duct region with questionable sludge/ adjacent tissue. CT of abdomen pending. Lipase 240. LFTs unremarkable. Cardiac workup is ongoing. Plan an addendum to follow Dr. Macias peer Current Visit: Yes Gastroenterology - PN: Subj Interval history: CC: Abdominal pain Patient is seen awake and alert lying in bed. States he had an uneventful night. He does state that he is having some of the chest pain this morning and also has some nausea that was elicited during the HIDA scan. Denies any vomiting at this time. HIDA scan done this morning and shows normal ejection fraction at 49%. Abdomen is soft, nontender. At this time cardiology continues to feel this is noncardiac origin. ROS: Denies shortness of breath or chest pain Exam (Progress Note) - Constitutional Vitals: Period Temp Pulse Resp BP Sys/Smith Pulse Ox Last 24 Hr 96.8 F-97.4 F 67-84 16-20 114-146/66-81 91-99 - Other Additional findings: General appearance: no acute distress, over weight - Head Head exam: Present: normal inspection, normocephalic - Eye Eye exam: Present: other (lids and conjunctiva unremarakble). Absent: scleral icterus - ENT ENT exam: Present: normal exam, normal oropharynx - Neck Neck exam: Present: normal inspection - Respiratory Respiratory exam: Present: clear to auscultation bilaterally. Absent: rales, rhonchi, wheezes - Cardiovascular Cardiovascular exam: Present: regular rate and rhythm. Absent: diastolic murmur , JVD, systolic murmur - GI/Abdominal GI/Abdominal exam: Present: normal bowel sounds, soft. Absent: ascites, distended, mass, organomegaly, tenderness - Extremities Exam Extremities exam: Present: normal inspection, full ROM - Back Exam Back exam: Present: normal inspection - Neurological Exam Neurological exam: Present: alert, oriented X3 - Psychiatric Psychiatric exam: Present: normal affect, normal mood - Skin Skin exam: Present: normal color, warm, dry Results - Labs CBC & BMP: 04/29/17 04:44 04/29/17 04:44 Lab Results: I have reviewed the past 24 hour labs - Diagnostic Findings Procedure: CT Abdomen and Pelvis: report reviewed by me
[2017-04-29 13:14] LABS: Troponin I Only 0.081 NG/ML (0.00-0.045)
--- NOTE | 2017-04-29 14:19 | Cardiology Progress Note ---
Assessment and Plan - Time spent with patient Time spent with patient: Greater than 30 minutes (1) Abdominal pain Status: Acute Assessment and plan: SEE PLAN OF CARE LISTED BELOW Current Visit: Yes (2) CAD (coronary artery disease) Status: Chronic Assessment and plan: SEE PLAN OF CARE LISTED BELOW Current Visit: Yes (3) Hypertension Status: Chronic Assessment and plan: SEE PLAN OF CARE LISTED BELOW Current Visit: Yes (4) Insulin dependent diabetes mellitus Status: Chronic Assessment and plan: SEE PLAN OF CARE LISTED BELOW Current Visit: Yes (5) Obesity Status: Chronic Assessment and plan: SEE PLAN OF CARE LISTED BELOW Current Visit: No (6) Hypercholesterolemia Status: Chronic Assessment and plan: SEE PLAN OF CARE LISTED BELOW Current Visit: No (7) Obstructive sleep apnea Status: Chronic Assessment and plan: SEE PLAN OF CARE LISTED BELOW Current Visit: No (8) s/p RCA stent 02/10/17 Status: Chronic Assessment and plan: SEE PLAN OF CARE LISTED BELOW Current Visit: No (9) Family history of early CAD Status: Chronic Assessment and plan: SEE PLAN OF CARE LISTED BELOW Current Visit: No (10) Status post diagonal stent 02/24/17 Status: Chronic Assessment and plan: SEE PLAN OF CARE LISTED BELOW Current Visit: No (11) Chest pain Status: Acute Assessment and plan: SEE PLAN OF CARE LISTED BELOW Current Visit: Yes Cardiology - PN: Subj Interval history: QUALITATIVE FIELD PROJECT MANAGER: DR. FISCHER SUMMARY: Mr. Hooper, 51WM, routinely followed by Dr. Fischer. Last seen in cardiology clinic March 10, 2017. Risk factors include: Known coronary artery disease (S/P diagonal stent February 24, 2017 and proximal RCA stent February 10, 2017) , hypertension, dyslipidemia, diabetes, obesity, remote tobaccoism, family history of premature coronary artery disease. History of known obstructive sleep apnea, compliant with device. APRIL 28, 2017: Presented to the emergency department April 27, 2016 with sudden onset left-sided chest pain, left shoulder pain and pain between his scapula. He has been housed on our telemetry unit overnight. Troponin noted to be 0.256 with normal CPK and MB. EKG stable. This morning, left-sided chest pain and shoulder pain has resolved however he continues to have pain between his scapula at various times. Gallbladder ultrasound revealed possible pancreatitis. Lipase and amylase are within normal limits however. D-dimer normal. He is NPO for abdominal CT with IV contrast and CT chest this morning. I have discussed with Dr. Burdick and he has recommended GI consultation. Trigs elevated at 300, LDL 99. APRIL 29, 2017: Overnight, patient's chest pain is completely resolved. He still has a nagging, dull ache in between his shoulder blades. Although the pain has improved, it still persists. There is no aggravating factors, no alleviating factors and it has been constant. Troponin was repeated this morning and noted to be 0.081. CT chest revealed possible infectious or inflammatory process of the left lower lobe of the lung. For this reason, I will treat with Levaquin. Recommended is a follow-up CT of the chest in 6 months to document stability of noncalcified bilateral pulmonary nodules measuring 4 mm or less. He has undergone HIDA scan which revealed no significant abnormality. He is scheduled for EGD in the morning. Blood pressure suboptimally controlled, increasing beta -blockade. Will verify he has had an additional dose today. ASSESSMENT/PLAN: 1. CHEST PAIN - see plan of care listed above. 2. KNOWN CAD - S/P PCI Dx February 2017 and proximal RCA February 10, 2017. Continuing to monitor cardiac biomarkers, EKG. 3. HYPERTENSION - increasing beta-blockade for better control. 4. DYSLIPIDEMIA - suboptimally controlled. Continue newly added [place]-3 to treat triglycerides. Crestor was initiated during this hospitalization. 5. DIABETES - suboptimally controlled blood glucose on arrival. Better controlled this morning. 6. PASHA - compliant with sleep device. Okay to use home device while hospitalized 7. OBESITY - dietary counseling prior to discharge 8. ABDOMINAL PAIN - scheduled for EGD tomorrow. Exam (Progress Note) - Constitutional Vitals: Period Temp Pulse Resp BP Sys/Smith Pulse Ox Last 24 Hr 96.8 F-97.4 F 70-84 16-20 114-146/69-90 92-99 Exam: General: [Appears well with no apparent distress.] [Pleasant and cooperative. ] [Appears comfortable.] HEENT: [PERRL, normocephalic, atraumatic. Mucous membranes moist. No jaundice noted. Conjunctiva moist and clear, sclerae anicteric] Neck: Unable to assess for JVD due to habitus. No thyromegaly or lymphadenopathy noted. Cardiac: [Regular rate and rhythm.] [No murmur rub or gallop.] Lungs: [Clear to auscultation without accessory muscle use to assist the respiratory pattern.] Not requiring oxygen Abdomen: Soft, bowel sounds normoactive. Nondistended. No abdominal bruit or thrill noted. No masses noted. Musculoskeletal: No fluid collection. Decreased range of motion is noted. Extremities: No clubbing, cyanosis noted. [ No edema noted.] Upper extremity pulses 2+. Lower extremity pulses 2+. Capillary refill less than 3 seconds. Skin: No unusual lesions or rashes. No skin breakdown appreciated. Neuro: Awake, alert and oriented 3. Moves all extremities well without hemiparesis or paralysis. No essential tremor is appreciated. Result/EKG - Labs CBC & BMP: 04/29/17 04:44 04/29/17 04:44 Lab Results: I have reviewed the past 24 hour labs Labs: Laboratory Results - last 24 hr 04/28/17 04/28/17 04/29/17 16:21 19:45 04:44 WBC 7.7 RBC 5.70 H Hgb 16.4 Hct 47.6 MCV 83.5 L MCH 29 MCHC 34.5 RDW 13.1 Plt Count 240 MPV 10.1 Neut % (Auto) 56.7 Lymph % (Auto) 30.5 [place] % (Auto) 8.0 Eos % (Auto) 3.9 Baso % (Auto) 0.5 Neut # (Auto) 4.4 Lymph # (Auto) 2.3 [place] # (Auto) 0.6 Eos # (Auto) 0.3 Baso # (Auto) 0.0 Immature Gran % 0.4 Nucleated RBC % 0.0 Immature Gran # 0.03 Nucleated RBCs # 0.00 Sodium Potassium Chloride Carbon Dioxide Anion Gap BUN Creatinine GFR Calculation BUN/Creatinine Ratio Glucose POC Glucose 171 H 217 H Calculated Osmolality Calcium Magnesium Total Creatine Kinase CK-MB (CK-2) Troponin I 04/29/17 04/29/17 04/29/17 04:44 09:33 11:46 WBC RBC Hgb Hct MCV MCH MCHC RDW Plt Count MPV Neut % (Auto) Lymph % (Auto) [place] % (Auto) Eos % (Auto) Baso % (Auto) Neut # (Auto) Lymph # (Auto) [place] # (Auto) Eos # (Auto) Baso # (Auto) Immature Gran % Nucleated RBC % Immature Gran # Nucleated RBCs # Sodium 136 Potassium 4.4 Chloride 98 Carbon Dioxide 31 Anion Gap 11.4 BUN 15 Creatinine 1.00 GFR Calculation 111 BUN/Creatinine Ratio 15.00 Glucose 130 H POC Glucose 198 H 165 H Calculated Osmolality 274.0 Calcium 8.7 Magnesium 2.0 Total Creatine Kinase CK-MB (CK-2) Troponin I 04/29/17 12:02 WBC RBC Hgb Hct MCV MCH MCHC RDW Plt Count MPV Neut % (Auto) Lymph % (Auto) [place] % (Auto) Eos % (Auto) Baso % (Auto) Neut # (Auto) Lymph # (Auto) [place] # (Auto) Eos # (Auto) Baso # (Auto) Immature Gran % Nucleated RBC % Immature Gran # Nucleated RBCs # Sodium Potassium Chloride Carbon Dioxide Anion Gap BUN Creatinine GFR Calculation BUN/Creatinine Ratio Glucose POC Glucose Calculated Osmolality Calcium Magnesium Total Creatine Kinase 99 D CK-MB (CK-2) 1.0 Troponin I 0.081 H D - Diagnostic Findings Procedure: Chest x-ray: report reviewed by me - EKG EKG results: interpreted by me EKG shows: sinus rhythm
[2017-04-29] MEDS ORDERED: METOPROLOL SUCCINATE XL 25 MG TABLET PO ONE (14:56)
[2017-04-29] MEDS: LEVOFLOXACIN INJ 500 MG in PREMIX 1 EACH IV SCH (16:35)
[2017-04-29] MEDS: ROSUVASTATIN 20 MG TABLET PO SCH (20:28)
[2017-04-29] MEDS: ALBUTEROL 1.25 MG/3 ML NEB RESP TX SCH (20:28)
[2017-04-29] MEDS: INSULIN GLARGINE 100 UNIT/ML SUBCUT SCH (20:47)
[2017-04-30] MEDS: NITROGLYCERIN 2% OINT 1 INCH/GM PACK TOP SCH ×2 (00:09→09:55)
[2017-04-30] MEDS: ALBUTEROL 1.25 MG/3 ML NEB RESP TX SCH ×3 (02:03→12:41)
[2017-04-30] MEDS: SODIUM CHLORIDE 0.9% 1,000 ML IV SCH ×2 (04:02→16:10)
[2017-04-30 05:54] LABS: Basophils % 0.5 % (0.0-0.8); Eosinophils # 0.2 10*3/uL (0.0-0.87); Eosinophils % 3.3 % (0.00-10.9); Hematocrit 43.9 VOL% (42.0-52.0); Hemoglobin 15.2 GM/DL (14.0-18.0); Immature Granulocytes % 0.2 %; Immature Granulocytes Absolute 0.01 #; Lymphocytes # 1.8 10*3/uL (1.4-4.0); Lymphocytes % 27.8 % (21.2-54.2); Mean Corpuscular HGB Conc 34.6 GM/DL (32-36); Mean Corpuscular Hemoglobin 28 PG (27-34); Mean Corpuscular Volume 81.8 FL (87-102); Mean Platelet Volume 10.4 FL (9.6-12.0); Monocytes # 0.5 10*3/uL (0.11-0.8); Neutrophils % 60.2 % (38.7-73.9); Platelet Count 227 T/CUMM (130-400); Red Blood Count 5.37 MC/CUMM (3.8-5.5); Red Cell Distribution Width 13.1 % (9.3-17.3); White Blood Count 6.6 T/CUMM (4-12)
--- NOTE | 2017-04-30 07:50 | EKG Report ---
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
[2017-04-30] MEDS ORDERED: METOPROLOL SUCCINATE XL 50 MG TABLET PO SCH (09:00)
[2017-04-30] MEDS ORDERED: PROPOFOL 200 MG/20 ML VIAL IV ONE (09:10)
[2017-04-30] MEDS ORDERED: LIDOCAINE 1% 5 ML VIAL ONE (09:10)
--- NOTE | 2017-04-30 09:10 | History and Physical Update ---
History and Physical Update - History and Physical H&P was reviewed, the patient examined and there: are no changes in the patients condition since last H&P was completed. - Physical Exam Mental Status: alert and oriented Heart: regular rate and rhythm Lung: clear to auscultation Abdomen: within normal limits Vitals: within normal limits
--- NOTE | 2017-04-30 09:26 | Operative Note ---
Date of procedure: 04/30/17 Pre-op diagnosis: Epigastric pain Procedure: Procedure: Esophagogastroduodenoscopy with biopsies gastric ulcers Brief clinical abstract: Patient is a 51-year-old male who has had recent recurrent upper abdominal pain after meals. He has gallbladder sludge. HIDA scan was normal. Liver tests have been normal. Indication for procedure: Recurrent upper abdominal pain Endoscopic findings:[After informed consent was obtained, the patient was placed in the left lateral decubitus position. The gastroscope was inserted in the upper esophagus under direct vision with no resistance encountered. Esophageal mucosa appeared normal with squamocolumnar junction sharply demarcated above a small hiatal hernia. The endoscope was advanced in the stomach which was carefully examined including retroflexed view of the cardia and fundus. There were 2 small 5-7 mm superficial white based ulcers in the prepyloric gastric antrum. Biopsies were obtained from the margin base of these for pathologic examination with 3 biopsies obtained. The pyloric channel , duodenal bulb, second and third portion of the duodenum were normal. The endoscope was withdrawn and patient appeared to tolerate the procedure well. Impression: #1 small hiatal hernia #2 gastric ulcers Recommendations: Continue proton pump inhibitor. Ask about nonsteroidal use and have him discontinue if taking. Anesthesia: MAC Surgeon / Physician: Wilfrido Macias Estimated blood loss: minimal Specimens: other (Gastric ulcers) Condition: stable Disposition: post procedure unit Results - Labs CBC & BMP: 04/30/17 04:41 04/29/17 04:44 Discharge Plan - Discharge Medications No Action Nitroglycerin [Nitroglycerin SL Tab] 0.4 mg SL Q5M PRN PRN Reason: Chest Pain Metoprolol Succinate 25 mg PO DAILY Metformin HCl 1,000 mg PO BID Lisinopril/Hydrochlorothiazide [Lisinopril-Hctz 20-12.5 mg Tab] 1 each PO DAILY Insulin Detemir [Levemir] 38 units SUBCUT BEDTIME Insulin Aspart [NovoLOG] See Protocol SUBCUT DAILY Albuterol Sulfate [Ventolin HFA] 2 puffs PO BID PRN PRN Reason: Shortness Of Breath Clopidogrel [Plavix] 75 mg PO DAILY Omeprazole 20 mg PO DAILY Aspirin [Ecotrin] 81 mg PO DAILY - Follow Up or Referral - Forms/Instructions
--- NOTE | 2017-04-30 09:29 | Anesthesia Post-Op ---
Anesthesia Post OP - Post Ansesthetic Evaluation Patient seen in post op: Yes Resp: within normal limits CV: within normal limits Mental: within normal limits Temp: within normal limits Iqyz-[id number]-[id number]: within normal limits Nausea and Vomiting: within normal limits Pain: within normal limits
[2017-04-30] MEDS: INSULIN LISPRO 100 UNIT/ML SUBCUT SCH ×3 (09:55→16:10)
--- NOTE | 2017-04-30 10:11 | Physician Query Form ---
CLICK EDIT DOCUMENT TO SELECT QUERY ANSWER --> OK --> SIGN Genna Manjarrez RN, CCDS Certified Clinical [employer]ner W) [phone] (f) [phone] [email or web address] PROVIDERS: Make your selection(s) from the choices in EACH section by typing an "x" and enter comments in the comment section. Please use your independent medical judgment in providing your response. This request does not imply that any particular answer is desired or expected. CLINICAL INDICATORS: (Providers should not edit this section) The medical record indicates that the patient was admitted with chest pain, "recurrent upper abdominal pain", "gallbladder sludge", HIDA scan was normal and EGD is showing a small HH/ gastric ulcers. After necessary workup, could you please state the underlying cause of the patient's chest pain, if determined. NON-CARDIAC ETIOLOGY: ( x) GERD ( ) Anterior chest wall pain ( ) due to gallbladder sludge ( ) due to HH ( x) due to gastric ulcers ( ) Pleuritic pain ( ) Costochondritis ( ) Anxiety (x ) Musculoskeletal, please provide site: ( ) Troponin elevation due to non-cardiac cause, please specify: ( ) Other etiology, please specify: ( ) Clinically unable to determine COMMENTS: PLEASE ALSO DOCUMENT RESPONSE IN PROGRESS NOTES AND/OR DISCHARGE SUMMARY Use of terms such as suspected, likely, or probable (associated with a specific diagnosis that is being evaluated, monitored, or treated as if it exists) are acceptable and can be restated in the discharge summary if not ruled out. MTDD
[2017-04-30] MEDS: ENOXAPARIN 120 MG/0.8 ML SYRINGE SUBCUT SCH (10:32)
[2017-04-30] MEDS: hydroCHLOROthiazide 12.5 MG CAPSULE PO SCH (10:33)
[2017-04-30] MEDS: PANTOPRAZOLE 40 MG TABLET PO SCH (10:33)
[2017-04-30] MEDS: CLOPIDOGREL 75 MG TABLET PO SCH (10:33)
[2017-04-30] MEDS: GABAPENTIN 100 MG CAPSULE PO SCH (10:33)
[2017-04-30] MEDS: OMEGA 3 ACID ETHYL ESTERS 1 GM CAPSULE PO SCH (10:33)
[2017-04-30] MEDS: traMADol 50 MG TABLET PO SCH (10:34)
[2017-04-30] MEDS: metFORMIN 500 MG TABLET PO SCH (10:34)
[2017-04-30] MEDS: LISINOPRIL 20 MG TABLET PO SCH (10:34)
[2017-04-30] MEDS: ACETAMINOPHEN 325 MG TABLET PO SCH (10:35)
[2017-04-30] MEDS: ASPIRIN EC 81 MG TABLET PO SCH (10:35)
--- NOTE | 2017-04-30 15:26 | Discharge Summary ---
Hospital Course - Hospital Course Hospital Course: PARK INTERPRETIVE SPECIALIST: DR. FISCHER SUMMARY: Mr. Hooper, 51WM, routinely followed by Dr. Fischer. Last seen in cardiology clinic March 10, 2017. Risk factors include: Known coronary artery disease (S/P diagonal stent February 24, 2017 and proximal RCA stent February 10, 2017) , hypertension, dyslipidemia, diabetes, obesity, remote tobaccoism, family history of premature coronary artery disease. History of known obstructive sleep apnea, compliant with device. APRIL 28, 2017: Presented to the emergency department April 27, 2017 with sudden onset left-sided chest pain, left shoulder pain and pain between his scapula. He has been housed on our telemetry unit overnight. Troponin noted to be 0.256 with normal CPK and MB. EKG stable. This morning, left-sided chest pain and shoulder pain has resolved however he continues to have pain between his scapula at various times. Gallbladder ultrasound revealed possible pancreatitis. Lipase and amylase are within normal limits however. D-dimer normal. He is NPO for abdominal CT with IV contrast and CT chest this morning. I have discussed with Dr. Burdick and he has recommended GI consultation. Trigs elevated at 300, LDL 99. APRIL 29, 2017: Overnight, patient's chest pain is completely resolved. He still has a nagging, dull ache in between his shoulder blades. Although the pain has improved, it still persists. There is no aggravating factors, no alleviating factors and it has been constant. Troponin was repeated this morning and noted to be 0.081. CT chest revealed possible infectious or inflammatory process of the left lower lobe of the lung. For this reason, I will treat with Levaquin. Recommended is a follow-up CT of the chest in 6 months to document stability of noncalcified bilateral pulmonary nodules measuring 4 mm or less. He has undergone HIDA scan which revealed no significant abnormality. He is scheduled for EGD in the morning. Blood pressure suboptimally controlled, increasing beta -blockade. Will verify he has had an additional dose today. APRIL 30 patient underwent EGD this morning performed by Dr. Macias. Identified was two 5-7cm superficial ulcers of the prepyloric gastric antrum. Patient will be discharged home on PPI. He is doing well this morning otherwise. He is being discharged home and will have a follow-up appointment with Dr. Fischer in 2-3 weeks. EKG, BMP, Mg, CBC at that visit. Metoprolol succinate 50 mg p.o. daily Lisinopril 40 mg p.o. daily HCTZ 25 mg 1 p.o. daily Crestor 20 mg 1 p.o. every evening [place]-3 1000 mg 1 p.o. twice daily Omeprazole 20 mg p.o. twice daily He will resume all other preadmission medications. - Time spent with patient Time with patient DS: Greater than 30 minutes Diagnosis - Discharge Diagnosis (1) Abdominal pain Status: Acute (2) CAD (coronary artery disease) Status: Chronic (3) Hypertension Status: Chronic (4) Insulin dependent diabetes mellitus Status: Chronic (5) Obesity Status: Chronic (6) Hypercholesterolemia Status: Chronic (7) Obstructive sleep apnea Status: Chronic (8) s/p RCA stent 02/10/17 Status: Chronic (9) Family history of early CAD Status: Chronic (10) Status post diagonal stent 02/24/17 Status: Chronic (11) Chest pain Status: Resolved Specialty Discharge - Follow Up or Referrals Follow up with: Alexander Fischer MD [Physician] - (2-3 weeks, EKG, BMP, Mg, CBC) Discharge Plan - Discharge Data Disposition: Disch To Home/Self Care Condition at Discharge: Stable Discharge Diet: heart healthy Activity: resume usual activities as tolerated Hygiene: no restrictions Weight Bearing at Discharge: full weight bearing Driving: no restrictions Contact your physician if you experience:: fever over 101, Difficulty voiding, Redness or swelling, Nausea/Vomiting, Shortness of breath, Bleeding, pain uncontrolled by pain medications - Discharge Medications New Lisinopril [Prinivil] 40 mg PO DAILY #30 tablet Metoprolol Succinate Xl [Toprol Xl] 50 mg PO DAILY #60 tablet Nitroglycerin Sl Tab [Nitrostat] 0.4 mg SL Q5M PRN tablet PRN Reason: Chest Pain Omeprazole [Prilosec] 20 mg PO BID #60 capsule Rosuvastatin [Crestor] 20 mg PO BEDTIME #30 tablet hydroCHLOROthiazide [Hydrochlorothiazide] 12.5 mg PO DAILY capsule [place] 3 Acid Ethyl Esters [Lovaza] 1 gm PO BID #60 capsule Continue Metformin HCl 1,000 mg PO BID Insulin Detemir [Levemir] 38 units SUBCUT BEDTIME Insulin Aspart [NovoLOG] See Protocol SUBCUT DAILY Albuterol Sulfate [Ventolin HFA] 2 puffs PO BID PRN PRN Reason: Shortness Of Breath Clopidogrel [Plavix] 75 mg PO DAILY Aspirin [Ecotrin] 81 mg PO DAILY Discontinued Nitroglycerin [Nitroglycerin SL Tab] 0.4 mg SL Q5M PRN PRN Reason: Chest Pain Lisinopril/Hydrochlorothiazide [Lisinopril-Hctz 20-12.5 mg Tab] 1 each PO DAILY Omeprazole 20 mg PO DAILY No Action Metoprolol Succinate 25 mg PO DAILY - Follow Up or Referral - Forms/Instructions Exam - Constitutional Vitals: Period Temp Pulse Resp BP Sys/Smith Pulse Ox Last 24 Hr 94.6 F-98.5 F 62-76 8-20 97-157/42-83 90-99 Exam: General: [Appears well with no apparent distress.] [Pleasant and cooperative. ] [Appears comfortable.] HEENT: [PERRL, normocephalic, atraumatic. Mucous membranes moist. No jaundice noted. Conjunctiva moist and clear, sclerae anicteric] Neck: Unable to assess for JVD due to habitus. No thyromegaly or lymphadenopathy noted. Cardiac: [Regular rate and rhythm.] [No murmur rub or gallop.] Lungs: [Clear to auscultation without accessory muscle use to assist the respiratory pattern.] Not requiring oxygen Abdomen: Soft, bowel sounds normoactive. Nondistended. No abdominal bruit or thrill noted. No masses noted. Musculoskeletal: No fluid collection. Decreased range of motion is noted. Extremities: No clubbing, cyanosis noted. [ No edema noted.] Upper extremity pulses 2+. Lower extremity pulses 2+. Capillary refill less than 3 seconds. Skin: No unusual lesions or rashes. No skin breakdown appreciated. Neuro: Awake, alert and oriented 3. Moves all extremities well without hemiparesis or paralysis. No essential tremor is appreciated. Discharge Results Labs on day of discharge: Labs from last 24 hours 04/30/17 04/30/17 04/30/17 12:35 11:19 08:33 WBC RBC Hgb Hct MCV MCH MCHC RDW Plt Count MPV Neut % (Auto) Lymph % (Auto) [place] % (Auto) Eos % (Auto) Baso % (Auto) Neut # (Auto) Lymph # (Auto) [place] # (Auto) Eos # (Auto) Baso # (Auto) Immature Gran % Nucleated RBC % Immature Gran # Nucleated RBCs # POC Glucose 89 79 87 04/30/17 04/29/17 04/29/17 04:41 20:43 15:36 WBC 6.6 RBC 5.37 Hgb 15.2 Hct 43.9 MCV 81.8 L MCH 28 MCHC 34.6 RDW 13.1 Plt Count 227 MPV 10.4 Neut % (Auto) 60.2 Lymph % (Auto) 27.8 [place] % (Auto) 8.0 Eos % (Auto) 3.3 Baso % (Auto) 0.5 Neut # (Auto) 4.0 Lymph # (Auto) 1.8 [place] # (Auto) 0.5 Eos # (Auto) 0.2 Baso # (Auto) 0.0 Immature Gran % 0.2 Nucleated RBC % 0.0 Immature Gran # 0.01 Nucleated RBCs # 0.00 POC Glucose 156 H 104 DS: Provider Date of admission: 04/27/17 10:54 Primary care physician: . No PCP Attending physician on admission: Herve Burdick MD Consults: 04/27/17 11:53 Consult to Case Mgmt/Social Srvs [CONS] Routine Reason for Case Mgmt/Social Srvs: Rehab 04/28/17 09:04 Consult to Physician [CONS] Routine Comment: abnormal GB US. CT Abdomen pending Consulting Provider: [facility] Gastroenterology Discharging clinician: Gela Steve NP Expected date of discharge: 04/30/17
[2017-04-30] MEDS: LEVOFLOXACIN INJ 500 MG in PREMIX 1 EACH IV SCH (16:09)
[2017-04-30 17:51] VITALS: BP 125/62
--- NOTE | 2017-05-01 11:20 | Pathology Report from [facility] ---
[facility] ACCESSION # : [id number] PATIENT NAME : Shanna Juarez ORDERING DR : SABAS LY MD CLINICAL HX: Abdominal pain POST-OP DX: Same SPECIMEN INFO: Gastric ulcer GROSS DESCRIPTION: Received in formalin labeled SHANNA JUAREZ are two martin tissue fragments measuring 0.4 x 0.2 cm collectively submitted in one cassette. DIAGNOSIS FOR SHANNA JUAREZ: GASTRIC ULCER BIOPSY: Chronic superficial gastritis, regenerative mucosal changes. H. pylori not seen on special stain. COLLECTED DATE: 04/30/2017 [facility] REPORT DATE: 05/01/2017 ELECTRONICALLY SIGNED BY: Rhoda Hale M.D. 05/01/2017 - 10:24:19 [facility]ENTER[facility]iz[facility]
== END 2017-04-30 18:50 | disposition home or self-care (01) | DRG 392 ==
LOC: N.ED 09:01 → N.EDINP 10:54 → N.TELEN 12:04
PROVIDERS: ADMIT Internal Medicine Cardiovascular Disease; ATTEND Internal Medicine Cardiovascular Disease